=== PATIENT | male | born 1960 | race Caucasian/White ===

== ENCOUNTER 2017-08-20 10:15 | Inpatient (IN) | payer OTHER, MEDICAID ==
[~2017-08-20] VITALS: Ht 175.3 cm; Wt 103.6 kg
[~2017-08-20 10:15] MED LIST: TNFMISC
[2017-08-20 11:01] VITALS: BP 139/76
[2017-08-20] MEDS ORDERED: HALOPERIDOL 5 MG TABLET PO PRN (11:30)
[2017-08-20] MEDS ORDERED: ZOLPIDEM TARTRATE 10 MG TABLET PO PRN (11:30)
[2017-08-20] MEDS ORDERED: LORazepam 2 MG TABLET PO PRN (11:30)
[2017-08-20] MEDS ORDERED: INFLUENZA VIRUS VACCINE QVS 2017-18 (3YR+)/PF 60 MCG/0.5 ML SYRINGE IM ONE (11:30)
[2017-08-20] MEDS ORDERED: PNEUMOCOCCAL VACCINE POLYVALENT 0.5 ML VIAL [PPSV23] IM ONE (12:00)
[2017-08-20] MEDS ORDERED: KDUR20 PO (12:25)
[2017-08-20] MEDS ORDERED: DIVA500T52 PO (12:25)
[2017-08-20] MEDS ORDERED: FURO40 PO (12:25)
[2017-08-20] MEDS ORDERED: RISP1 PO (12:25)
[2017-08-20] MEDS ORDERED: PANT40TA25 PO (12:25)
[2017-08-20] MEDS ORDERED: LISI-661 PO (12:25)
[2017-08-20] MEDS ORDERED: LORA0.5T2 PO (12:25)
[2017-08-20] MEDS ORDERED: LEVO112T4 PO (12:25)
[2017-08-20] MEDS ORDERED: SUCR1TAB PO (12:25)
[2017-08-20] MEDS ORDERED: PHEN100C23 PO ×2 (12:25)
[2017-08-20] MEDS ORDERED: FERR-89 PO (12:25)
[2017-08-20] MEDS ORDERED: LEVE500T53 PO ×3 (12:25)
[2017-08-20] MEDS ORDERED: GUAN1TAB22 PO (12:25)
[2017-08-20] MEDS ORDERED: BENZ1TAB10 PO (12:25)
[2017-08-20] MEDS ORDERED: BRIV100T PO (12:25)
[2017-08-20 13:06] LABS: BASOPHILS # (AUTO) 0.03 K/uL (0.00-0.20); BASOPHILS % (AUTO) 0.5 % (0.0-2.0); EOSINOPHILS # (AUTO) 0.05 K/uL (0.00-0.70); EOSINOPHILS % (AUTO) 0.66 % (1.0-6.0); HEMATOCRIT 34.7 % (41-53); HEMOGLOBIN 11.8 g/dL (13.5-17.5); LYMPHOCYTES # (AUTO) 1.9 K/uL (1.0-4.8); LYMPHOCYTES % (AUTO) 25.8 % (22.0-44.0); MEAN CORPUSCULAR HEMOGLOBIN 31.7 pg (26.0-34.0); MEAN CORPUSCULAR HGB CONC 33.9 G/dL (31.0-37.0); MEAN CORPUSCULAR VOLUME 94 fL (80-100); MONOCYTES # (AUTO) 0.7 K/uL (0.1-1.0); MONOCYTES % (AUTO) 9.4 % (2.0-9.0); NEUTROPHILS # (AUTO) 4.6 K/uL (1.8-7.7); NEUTROPHILS % (AUTO) 63.7 % (40.0-70.0); PLATELET COUNT (AUTO) 294 K/uL (150-450); RED BLOOD CELL COUNT(AUTO) 3.71 MIL/uL (4.50-5.90); RED CELL DISTRIBUTION WIDTH 13.7 % (11.5-14.5); WHITE BLOOD COUNT (AUTO) 7.2 K/uL (4.5-11.0)
[2017-08-20 13:22] LABS: GLUCOSE,POINT OF CARE 93 MG/DL (70-110)
[2017-08-20 13:24] LABS: ANION GAP 7 mmol/L (8-16); CARBON DIOXIDE 29 mmol/L (22-29); CHLORIDE 89 mmol/L (98-107); GLOMERULAR FILTR. RATE CALC > 60 mL/min (>60); POTASSIUM 4.6 mmol/L (3.5-5.1); SODIUM SERUM 125 mmol/L (136-145); UREA NITROGEN, BLOOD 21 mg/dL (7-18)
[2017-08-20 13:31] LABS: ALANINE AMINOTRANSFERASE 21 U/L (12-78); ALBUMIN 3.9 g/dL (3.4-5.0); ASPARTATE AMINOTRANSFERASE 17 U/L (15-37); BILIRUBIN,TOTAL 0.2 mg/dL (0.1-1.0); TOTAL PROTEIN, SERUM 8.5 g/dL (6.4-8.2)
[2017-08-20] MEDS ORDERED: SODIUM CHLORIDE 0.9% 1,000 ML IV ONE (13:45)
[2017-08-20] MEDS: LORazepam 0.5 MG TABLET PO SCH (18:00)
[2017-08-20] MEDS: RisperiDONE 1 MG TABLET PO SCH (18:45)
[2017-08-20] MEDS: DIVALPROEX SODIUM 500 MG ER TABLET PO SCH (19:51)
[2017-08-20 20:00] VITALS: BP 157/74
[2017-08-20] MEDS ORDERED: DIVALPROEX SODIUM 500 MG ER TABLET PO SCH (20:00)
[2017-08-20] MEDS ORDERED: PETROLATUM,WHITE 71 GM JELLY TP PRN (20:00)
[2017-08-20] MEDS ORDERED: BACITRACIN 28.4 GM OINTMENT TP PRN (20:00)
[2017-08-20] MEDS ORDERED: MAG HYDROX/AL HYDROX/SIMETH ES 30 ML SUSPENSION UDCUP PO PRN (20:00)
[2017-08-20] MEDS ORDERED: LOPERAMIDE HCL 2 MG CAPSULE PO PRN (20:00)
[2017-08-20] MEDS ORDERED: ONDANSETRON HCL 4 MG TABLET PO PRN (20:00)
[2017-08-20] MEDS ORDERED: CloNIDine HCL 0.1 MG TABLET PO PRN (20:00)
[2017-08-20] MEDS ORDERED: ACETAMINOPHEN 325 MG TABLET PO PRN (20:00)
[2017-08-20] MEDS ORDERED: ALBUTEROL SULFATE HFA 90 MCG/PUFF 8 GM INHALER IH PRN (20:00)
[2017-08-20] MEDS ORDERED: MAGNESIUM HYDROXIDE SUSPENSION 30 ML UDCUP PO PRN (20:00)
[2017-08-20] MEDS ORDERED: IBUPROFEN 600 MG TABLET PO PRN (20:00)
[2017-08-20] MEDS ORDERED: BENZOCAINE/MENTHOL LOZENGE [8 LOZENGES/PACKET] MM PRN (20:00)
[2017-08-21] MEDS ORDERED: PANTOPRAZOLE SODIUM 40 MG DR TABLET PO SCH (07:00)
[2017-08-21] MEDS ORDERED: LEVOTHYROXINE SODIUM 112 MCG TABLET PO SCH (07:00)
[2017-08-21 07:22] LABS: GLUCOSE,POINT OF CARE 107 MG/DL (70-110)
[2017-08-21] MEDS ORDERED: FERROUS SULFATE 325 MG EC TABLET PO SCH (07:30)
[2017-08-21] MEDS ORDERED: LevETIRAcetam 500 MG TABLET PO SCH (09:00)
[2017-08-21] MEDS ORDERED: DOCUSATE SODIUM 100 MG CAPSULE PO SCH (09:00)
[2017-08-21] MEDS ORDERED: PHENYTOIN SODIUM 100 MG ER CAPSULE PO SCH (09:00)
[2017-08-21] MEDS ORDERED: GuanFACINE HCL 1 MG TABLET PO SCH (09:00)
[2017-08-21] MEDS ORDERED: POTASSIUM CHLORIDE 20 MEQ ER TABLET PO SCH (09:00)
[2017-08-21] MEDS ORDERED: FUROSEMIDE 40 MG TABLET PO SCH (09:00)
[2017-08-21] MEDS: DIVALPROEX SODIUM 500 MG ER TABLET PO SCH (09:26)
[2017-08-21] MEDS: LISINOPRIL 10 MG TABLET PO SCH ×2 (09:27→09:46)
[2017-08-21] MEDS: RisperiDONE 1 MG TABLET PO SCH (09:27)
[2017-08-21] MEDS: LORazepam 0.5 MG TABLET PO SCH (09:28)
[2017-08-21 09:30] VITALS: BP 147/70
== END 2017-08-21 09:59 | disposition short-term general hospital (02) | DRG 885 ==
LOC: EDSTATUS 10:32 → BV PSY EVL 11:52 → 3EX 12:57 → 3EC 19:07
PROVIDERS: ADMIT Psychiatry & Neurology Psychiatry; ATTEND Psychiatry & Neurology Psychiatry
DX: F25.9 Schizoaffective disorder, unspecified (principal); F79 Unspecified intellectual disabilities; G40.909 Epilepsy, unspecified, not intractable, without status epilepticus; I10 Essential (primary) hypertension; Z79.899 Other long term (current) drug therapy
CPT/HCPCS: 82948; 82962; 90471; 99285; G0482; J7030

== ENCOUNTER 2017-08-21 10:00 | Inpatient (IN) | payer MEDICARE, MEDICAID ==
[~2017-08-21 10:00] MED LIST changes: +BENZ1TAB10 PO; +BRIV100T PO; +DIVA500T52 PO; +FERR-89 PO; +FURO40 PO; +GUAN1TAB22 PO; +KDUR20 PO; +LEVE500T53 PO; +LEVO112T4 PO; +LISI-661 PO; +LORA0.5T2 PO; +PANT40TA25 PO; +PHEN100C23 PO; +RISP1 PO; +SUCR1TAB PO
[2017-08-21] MEDS ORDERED: LevETIRAcetam 1,000 MG in DEXTROSE 5%-WATER 100 ML IV SCH (11:30)
[2017-08-21] MEDS ORDERED: ONDANSETRON HCL 4 MG/2 ML VIAL IVP PRN (11:30)
[2017-08-21] MEDS ORDERED: IPRATROPIUM BROMIDE 0.5 MG/2.5 ML NEB SOLUTION NEB PRN (11:30)
[2017-08-21] MEDS ORDERED: ZOLPIDEM TARTRATE 5 MG TABLET PO PRN (11:30)
[2017-08-21] MEDS ORDERED: CloNIDine HCL 0.1 MG TABLET PO PRN (11:30)
[2017-08-21] MEDS ORDERED: MAGNESIUM HYDROXIDE SUSPENSION 30 ML UDCUP PO PRN (11:30)
[2017-08-21] MEDS ORDERED: ALBUTEROL SULFATE 2.5 MG/0.5 ML NEB SOLUTION NEB PRN (11:30)
[2017-08-21] MEDS ORDERED: BISACODYL 10 MG RECTAL RECTAL SUPPOSITORY PR PRN (11:30)
[2017-08-21] MEDS ORDERED: ACETAMINOPHEN 325 MG TABLET PO PRN (11:30)
[2017-08-21 11:37] VITALS: BP 126/65
[2017-08-21 13:45] LABS: BASOPHILS # (AUTO) 0.01 K/uL (0.00-0.20); BASOPHILS % (AUTO) 0.2 % (0.0-2.0); EOSINOPHILS # (AUTO) 0.05 K/uL (0.00-0.70); EOSINOPHILS % (AUTO) 0.68 % (1.0-6.0); HEMATOCRIT 34.9 % (41-53); HEMOGLOBIN 11.7 g/dL (13.5-17.5); LYMPHOCYTES # (AUTO) 1.5 K/uL (1.0-4.8); LYMPHOCYTES % (AUTO) 20.2 % (22.0-44.0); MEAN CORPUSCULAR HEMOGLOBIN 31.4 pg (26.0-34.0); MEAN CORPUSCULAR HGB CONC 33.6 G/dL (31.0-37.0); MEAN CORPUSCULAR VOLUME 94 fL (80-100); MONOCYTES # (AUTO) 0.7 K/uL (0.1-1.0); MONOCYTES % (AUTO) 9.8 % (2.0-9.0); NEUTROPHILS % (AUTO) 69.1 % (40.0-70.0); PLATELET COUNT (AUTO) 287 K/uL (150-450); RED BLOOD CELL COUNT(AUTO) 3.72 MIL/uL (4.50-5.90); RED CELL DISTRIBUTION WIDTH 13.5 % (11.5-14.5)
[2017-08-21] MEDS ORDERED: SODIUM CHLORIDE 0.9% 1,000 ML IV SCH (14:00)
[2017-08-21 14:12] LABS: ALANINE AMINOTRANSFERASE 19 U/L (12-78); ALBUMIN 3.5 g/dL (3.4-5.0); ALKALINE PHOSPHATASE 127 U/L (46-116); ANION GAP 9 mmol/L (8-16); ASPARTATE AMINOTRANSFERASE 18 U/L (15-37); BILIRUBIN,TOTAL 0.3 mg/dL (0.1-1.0); CALCIUM, TOTAL 8.7 mg/dL (8.8-10.5); CARBON DIOXIDE 27 mmol/L (22-29); CHLORIDE 89 mmol/L (98-107); GLOMERULAR FILTR. RATE CALC > 60 mL/min (>60); GLUCOSE,RANDOM 103 mg/dL (70-110); POTASSIUM 4.3 mmol/L (3.5-5.1); SODIUM SERUM 125 mmol/L (136-145); TOTAL PROTEIN, SERUM 8.2 g/dL (6.4-8.2); UREA NITROGEN, BLOOD 17 mg/dL (7-18)
[2017-08-21] MEDS ORDERED: PHENYTOIN SODIUM 1,000 MG in SODIUM CHLORIDE 0.9% 150 ML IV ONE (15:00)
[2017-08-21 15:50] VITALS: BP 100/60
[2017-08-21] MEDS: LORazepam 0.5 MG TABLET PO SCH ×3 (16:00→20:32)
[2017-08-21] MEDS: GuanFACINE HCL 1 MG TABLET PO SCH (16:21)
[2017-08-21] MEDS ORDERED: HEPARIN SODIUM,PORCINE 5,000 UNITS/ML VIAL IVP PRN ×2 (18:30)
[2017-08-21 18:56] LABS: INR 1.1 (0.9-1.1); PROTHROMBIN TIME 11.4 SEC (9.4-11.6)
[2017-08-21] MEDS ORDERED: HEPARIN SODIUM,PORCINE 5,000 UNITS/ML VIAL IVP ONE (19:00)
[2017-08-21 20:10] VITALS: BP 154/67
[2017-08-21] MEDS: HEPARIN SODIUM 25000 UNITS/D5W 250 ML IV PRN (20:18)
[2017-08-21] MEDS: SUCRALFATE 1 GM TABLET PO SCH (20:32)
[2017-08-21] MEDS: BENZTROPINE MESYLATE 1 MG TABLET PO SCH (20:32)
[2017-08-21] MEDS: DIVALPROEX SODIUM 500 MG ER TABLET PO SCH (20:33)
[2017-08-21] MEDS: RisperiDONE 1 MG TABLET PO SCH (20:33)
[2017-08-21] MEDS ORDERED: HEPARIN SODIUM,PORCINE 5,000 UNITS/ML VIAL SQ SCH (21:00)
[2017-08-22 00:09] VITALS: BP 110/58
[2017-08-22 04:32] VITALS: BP 113/69
[2017-08-22 05:59] LABS: BASOPHILS % (AUTO) 0.5 % (0.0-2.0); EOSINOPHILS % (AUTO) 2.2 % (1.0-6.0); HEMATOCRIT 29.7 % (41-53); HEMOGLOBIN 10.1 g/dL (13.5-17.5); LYMPHOCYTES # (AUTO) 2.4 K/uL (1.0-4.8); LYMPHOCYTES % (AUTO) 37.6 % (22.0-44.0); MEAN CORPUSCULAR HEMOGLOBIN 31.7 pg (26.0-34.0); MEAN CORPUSCULAR HGB CONC 34.1 G/dL (31.0-37.0); MEAN CORPUSCULAR VOLUME 93 fL (80-100); MONOCYTES # (AUTO) 0.7 K/uL (0.1-1.0); MONOCYTES % (AUTO) 11.9 % (2.0-9.0); NEUTROPHILS % (AUTO) 47.8 % (40.0-70.0); PLATELET COUNT (AUTO) 253 K/uL (150-450); RED BLOOD CELL COUNT(AUTO) 3.19 MIL/uL (4.50-5.90); RED CELL DISTRIBUTION WIDTH 13.4 % (11.5-14.5)
[2017-08-22 06:24] LABS: ALANINE AMINOTRANSFERASE 18 U/L (12-78); ALBUMIN 2.9 g/dL (3.4-5.0); ALKALINE PHOSPHATASE 109 U/L (46-116); ANION GAP 7 mmol/L (8-16); ASPARTATE AMINOTRANSFERASE 14 U/L (15-37); BILIRUBIN,TOTAL 0.2 mg/dL (0.1-1.0); CALCIUM, TOTAL 8.1 mg/dL (8.8-10.5); CARBON DIOXIDE 26 mmol/L (22-29); CHLORIDE 89 mmol/L (98-107); CHOL/HDL RATIO 1.7 (4.2-7.3); CHOLESTEROL 146 mg/dL (131-200); CREATININE 0.96 mg/dL (0.60-1.30); GLOMERULAR FILTR. RATE CALC > 60 mL/min (>60); GLUCOSE,RANDOM 98 mg/dL (70-110); HDL CHOLESTEROL 84 mg/dL (40-60); LDL CHOL (CALC.) 52 mg/dL (0-130); PHENYTOIN (DILANTIN) 11.1 mcg/mL (10.0-20.0); PHOSPHORUS 3.1 mg/dL (2.5-4.9); POTASSIUM 4.2 mmol/L (3.5-5.1); THYROID STIMULATING HORMONE 4.26 uIU/mL (0.36-3.74); TOTAL PROTEIN, SERUM 6.6 g/dL (6.4-8.2); TRIGLYCERIDES 48 mg/dL (15-150); UREA NITROGEN, BLOOD 16 mg/dL (7-18)
[2017-08-22] MEDS ORDERED: LEVOTHYROXINE SODIUM 112 MCG TABLET PO SCH (06:30)
[2017-08-22 06:49] LABS: SODIUM SERUM 122 mmol/L (136-145)
[2017-08-22 07:22] VITALS: BP 126/75
[2017-08-22] MEDS: LORazepam 0.5 MG TABLET PO SCH ×3 (09:08→19:56)
[2017-08-22] MEDS: LevETIRAcetam 1,000 MG in DEXTROSE 5%-WATER 100 ML IV SCH (09:08)
[2017-08-22] MEDS: SUCRALFATE 1 GM TABLET PO SCH ×2 (09:08→19:54)
[2017-08-22] MEDS: BENZTROPINE MESYLATE 1 MG TABLET PO SCH ×2 (09:08→19:54)
[2017-08-22] MEDS: DIVALPROEX SODIUM 500 MG ER TABLET PO SCH ×2 (09:08→19:54)
[2017-08-22] MEDS: LISINOPRIL 10 MG TABLET PO SCH (09:09)
[2017-08-22] MEDS: RisperiDONE 1 MG TABLET PO SCH ×2 (09:09→19:54)
[2017-08-22] MEDS: PANTOPRAZOLE SODIUM 40 MG DR TABLET PO SCH (09:09)
[2017-08-22] MEDS: GuanFACINE HCL 1 MG TABLET PO SCH (09:09)
[2017-08-22 11:06] VITALS: BP 116/60
[2017-08-22] MEDS: HEPARIN SODIUM 25000 UNITS/D5W 250 ML IV PRN (13:48)
[2017-08-22] MEDS: SODIUM CHLORIDE 1 GM TABLET PO SCH ×2 (15:28→19:54)
[2017-08-22 16:15] VITALS: BP 124/68
[2017-08-22 19:28] VITALS: BP 116/50
[2017-08-22] MEDS ORDERED: PNEUMOCOCCAL VACCINE POLYVALENT 0.5 ML VIAL [PPSV23] IM ONE (20:30)
[2017-08-23 04:16] VITALS: BP 119/72
[2017-08-23 08:03] LABS: SODIUM SERUM 127 mmol/L (136-145)
[2017-08-23] MEDS: SODIUM CHLORIDE 1 GM TABLET PO SCH ×3 (09:05→21:03)
[2017-08-23] MEDS: GuanFACINE HCL 1 MG TABLET PO SCH (09:05)
[2017-08-23] MEDS: DIVALPROEX SODIUM 500 MG ER TABLET PO SCH ×2 (09:05→21:06)
[2017-08-23] MEDS: BENZTROPINE MESYLATE 1 MG TABLET PO SCH ×2 (09:06→21:06)
[2017-08-23] MEDS: SUCRALFATE 1 GM TABLET PO SCH ×2 (09:06→21:03)
[2017-08-23] MEDS: PANTOPRAZOLE SODIUM 40 MG DR TABLET PO SCH (09:06)
[2017-08-23] MEDS: LEVOTHYROXINE SODIUM 125 MCG TABLET PO SCH (09:07)
[2017-08-23] MEDS: RisperiDONE 1 MG TABLET PO SCH ×2 (09:07→21:04)
[2017-08-23] MEDS: RIVAROXABAN 15 MG TABLET PO SCH ×2 (09:08→17:15)
[2017-08-23] MEDS: LORazepam 0.5 MG TABLET PO SCH ×3 (09:08→21:04)
[2017-08-23] MEDS: LISINOPRIL 10 MG TABLET PO SCH (09:09)
[2017-08-23] MEDS: LevETIRAcetam 1,000 MG in DEXTROSE 5%-WATER 100 ML IV SCH (09:24)
[2017-08-23 09:41] VITALS: BP 118/69
[2017-08-23 11:54] LABS: VALPROIC ACID 45 mcg/mL (50-100)
[2017-08-23 15:26] VITALS: BP 121/70
[2017-08-23 19:15] VITALS: BP 113/64
[2017-08-23] MEDS: PHENYTOIN SODIUM 100 MG ER CAPSULE PO SCH (21:03)
[2017-08-23] MEDS: LevETIRAcetam 500 MG TABLET PO SCH (21:04)
[2017-08-24 01:31] VITALS: BP 124/52
[2017-08-24 04:05] VITALS: BP 135/80
[2017-08-24] MEDS: LEVOTHYROXINE SODIUM 125 MCG TABLET PO SCH (05:43)
[2017-08-24 06:08] LABS: BASOPHILS % (AUTO) 0.5 % (0.0-2.0); EOSINOPHILS % (AUTO) 1.2 % (1.0-6.0); HEMATOCRIT 30.1 % (41-53); HEMOGLOBIN 10.3 g/dL (13.5-17.5); LYMPHOCYTES # (AUTO) 2.2 K/uL (1.0-4.8); LYMPHOCYTES % (AUTO) 36.1 % (22.0-44.0); MEAN CORPUSCULAR HEMOGLOBIN 31.9 pg (26.0-34.0); MEAN CORPUSCULAR HGB CONC 34.2 G/dL (31.0-37.0); MEAN CORPUSCULAR VOLUME 93 fL (80-100); MONOCYTES # (AUTO) 0.8 K/uL (0.1-1.0); MONOCYTES % (AUTO) 13.8 % (2.0-9.0); NEUTROPHILS # (AUTO) 2.9 K/uL (1.8-7.7); NEUTROPHILS % (AUTO) 48.4 % (40.0-70.0); PLATELET COUNT (AUTO) 267 K/uL (150-450); RED BLOOD CELL COUNT(AUTO) 3.23 MIL/uL (4.50-5.90); RED CELL DISTRIBUTION WIDTH 13.9 % (11.5-14.5)
[2017-08-24 06:26] LABS: ALANINE AMINOTRANSFERASE 19 U/L (12-78); ALBUMIN 2.8 g/dL (3.4-5.0); ALKALINE PHOSPHATASE 102 U/L (46-116); ANION GAP 5 mmol/L (8-16); ASPARTATE AMINOTRANSFERASE 12 U/L (15-37); BILIRUBIN,TOTAL 0.1 mg/dL (0.1-1.0); CALCIUM, TOTAL 8.1 mg/dL (8.8-10.5); CARBON DIOXIDE 29 mmol/L (22-29); CHLORIDE 96 mmol/L (98-107); CREATININE 0.94 mg/dL (0.60-1.30); GLOMERULAR FILTR. RATE CALC > 60 mL/min (>60); GLUCOSE,RANDOM 88 mg/dL (70-110); PHOSPHORUS 2.6 mg/dL (2.5-4.9); POTASSIUM 4.1 mmol/L (3.5-5.1); SODIUM SERUM 130 mmol/L (136-145); TOTAL PROTEIN, SERUM 6.6 g/dL (6.4-8.2); UREA NITROGEN, BLOOD 12 mg/dL (7-18)
[2017-08-24 07:15] VITALS: BP 130/66
[2017-08-24] MEDS: SODIUM CHLORIDE 1 GM TABLET PO SCH ×3 (08:17→20:16)
[2017-08-24] MEDS: GuanFACINE HCL 1 MG TABLET PO SCH (08:17)
[2017-08-24] MEDS: DIVALPROEX SODIUM 500 MG ER TABLET PO SCH ×2 (08:17→21:13)
[2017-08-24] MEDS: PHENYTOIN SODIUM 100 MG ER CAPSULE PO SCH ×2 (08:17→20:16)
[2017-08-24] MEDS: SUCRALFATE 1 GM TABLET PO SCH ×2 (08:17→20:16)
[2017-08-24] MEDS: RIVAROXABAN 15 MG TABLET PO SCH ×2 (08:17→17:48)
[2017-08-24] MEDS: LevETIRAcetam 500 MG TABLET PO SCH ×2 (08:18→20:20)
[2017-08-24] MEDS: LISINOPRIL 10 MG TABLET PO SCH (08:18)
[2017-08-24] MEDS: LORazepam 0.5 MG TABLET PO SCH ×3 (08:19→20:21)
[2017-08-24] MEDS: PANTOPRAZOLE SODIUM 40 MG DR TABLET PO SCH (08:19)
[2017-08-24] MEDS: BENZTROPINE MESYLATE 1 MG TABLET PO SCH ×2 (08:19→20:16)
[2017-08-24] MEDS: CHOLECALCIFEROL (VIT D3) 1,000 UNITS TABLET PO SCH (08:20)
[2017-08-24] MEDS: RisperiDONE 1 MG TABLET PO SCH ×2 (08:20→20:16)
[2017-08-24] MEDS: LORazepam 2 MG/ML VIAL IVP PRN ×2 (11:35→17:48)
[2017-08-24 12:59] VITALS: BP 157/85
[2017-08-24 19:07] VITALS: BP 104/59
[2017-08-24] MEDS ORDERED: SODIUM CHLORIDE 0.9% 500 ML IV ONE (21:24)
[2017-08-25] VITALS (7 sets, daily range): BP systolic 124–142; BP diastolic 66–79
[2017-08-25] MEDS: LORazepam 2 MG/ML VIAL IVP PRN (03:15)
[2017-08-25] MEDS: LEVOTHYROXINE SODIUM 150 MCG TABLET PO SCH (05:59)
[2017-08-25 08:08] LABS: ANION GAP 7 mmol/L (8-16); CALCIUM, TOTAL 8.4 mg/dL (8.8-10.5); CARBON DIOXIDE 26 mmol/L (22-29); CHLORIDE 96 mmol/L (98-107); GLOMERULAR FILTR. RATE CALC > 60 mL/min (>60); GLUCOSE,RANDOM 96 mg/dL (70-110); POTASSIUM 4.7 mmol/L (3.5-5.1); SODIUM SERUM 129 mmol/L (136-145); UREA NITROGEN, BLOOD 16 mg/dL (7-18)
[2017-08-25] MEDS: BENZTROPINE MESYLATE 1 MG TABLET PO SCH ×2 (10:04→20:17)
[2017-08-25] MEDS: DIVALPROEX SODIUM 500 MG ER TABLET PO SCH ×2 (10:04→20:18)
[2017-08-25] MEDS: LevETIRAcetam 500 MG TABLET PO SCH ×2 (10:04→20:17)
[2017-08-25] MEDS: PANTOPRAZOLE SODIUM 40 MG DR TABLET PO SCH (10:04)
[2017-08-25] MEDS: RisperiDONE 1 MG TABLET PO SCH ×2 (10:05→20:17)
[2017-08-25] MEDS: LISINOPRIL 10 MG TABLET PO SCH (10:05)
[2017-08-25] MEDS: GuanFACINE HCL 1 MG TABLET PO SCH (10:05)
[2017-08-25] MEDS: SUCRALFATE 1 GM TABLET PO SCH ×2 (10:05→20:18)
[2017-08-25] MEDS: SODIUM CHLORIDE 1 GM TABLET PO SCH ×3 (10:05→20:18)
[2017-08-25] MEDS: PHENYTOIN SODIUM 100 MG ER CAPSULE PO SCH ×2 (10:05→20:18)
[2017-08-25] MEDS: RIVAROXABAN 15 MG TABLET PO SCH ×2 (10:05→17:18)
[2017-08-25] MEDS: CHOLECALCIFEROL (VIT D3) 1,000 UNITS TABLET PO SCH (10:08)
[2017-08-25] MEDS: LORazepam 0.5 MG TABLET PO SCH ×3 (10:08→20:17)
[2017-08-26 04:00] VITALS: BP 122/68
[2017-08-26] MEDS: LEVOTHYROXINE SODIUM 150 MCG TABLET PO SCH (05:44)
[2017-08-26 06:29] LABS: BASOPHILS # (AUTO) 0.02 K/uL (0.00-0.20); BASOPHILS % (AUTO) 0.3 % (0.0-2.0); EOSINOPHILS # (AUTO) 0.14 K/uL (0.00-0.70); EOSINOPHILS % (AUTO) 2.05 % (1.0-6.0); HEMATOCRIT 32.8 % (41-53); LYMPHOCYTES # (AUTO) 2.1 K/uL (1.0-4.8); LYMPHOCYTES % (AUTO) 31.2 % (22.0-44.0); MEAN CORPUSCULAR HEMOGLOBIN 31.8 pg (26.0-34.0); MEAN CORPUSCULAR HGB CONC 33.6 G/dL (31.0-37.0); MEAN CORPUSCULAR VOLUME 95 fL (80-100); MONOCYTES # (AUTO) 0.6 K/uL (0.1-1.0); MONOCYTES % (AUTO) 9.3 % (2.0-9.0); NEUTROPHILS # (AUTO) 3.8 K/uL (1.8-7.7); NEUTROPHILS % (AUTO) 57.1 % (40.0-70.0); PLATELET COUNT (AUTO) 287 K/uL (150-450); RED BLOOD CELL COUNT(AUTO) 3.47 MIL/uL (4.50-5.90); RED CELL DISTRIBUTION WIDTH 13.8 % (11.5-14.5)
[2017-08-26 06:49] LABS: ALANINE AMINOTRANSFERASE 18 U/L (12-78); ALBUMIN 2.8 g/dL (3.4-5.0); ALKALINE PHOSPHATASE 114 U/L (46-116); ANION GAP 7 mmol/L (8-16); ASPARTATE AMINOTRANSFERASE 16 U/L (15-37); BILIRUBIN,TOTAL 0.2 mg/dL (0.1-1.0); CALCIUM, TOTAL 8.5 mg/dL (8.8-10.5); CARBON DIOXIDE 28 mmol/L (22-29); CHLORIDE 96 mmol/L (98-107); CREATININE 0.86 mg/dL (0.60-1.30); GLOMERULAR FILTR. RATE CALC > 60 mL/min (>60); GLUCOSE,RANDOM 94 mg/dL (70-110); PHOSPHORUS 3.5 mg/dL (2.5-4.9); POTASSIUM 4.7 mmol/L (3.5-5.1); SODIUM SERUM 131 mmol/L (136-145); TOTAL PROTEIN, SERUM 7.2 g/dL (6.4-8.2); UREA NITROGEN, BLOOD 15 mg/dL (7-18)
[2017-08-26 07:43] VITALS: BP 110/66
[2017-08-26] MEDS: GuanFACINE HCL 1 MG TABLET PO SCH (08:16)
[2017-08-26] MEDS: SODIUM CHLORIDE 1 GM TABLET PO SCH ×2 (08:16→19:47)
[2017-08-26] MEDS: DIVALPROEX SODIUM 500 MG ER TABLET PO SCH ×2 (08:16→19:45)
[2017-08-26] MEDS: BENZTROPINE MESYLATE 1 MG TABLET PO SCH ×2 (08:17→19:46)
[2017-08-26] MEDS: RisperiDONE 1 MG TABLET PO SCH ×2 (08:17→19:46)
[2017-08-26] MEDS: RIVAROXABAN 15 MG TABLET PO SCH ×2 (08:17→19:47)
[2017-08-26] MEDS: CHOLECALCIFEROL (VIT D3) 1,000 UNITS TABLET PO SCH (08:17)
[2017-08-26] MEDS: LISINOPRIL 10 MG TABLET PO SCH (08:17)
[2017-08-26] MEDS: PHENYTOIN SODIUM 100 MG ER CAPSULE PO SCH ×2 (08:17→19:46)
[2017-08-26] MEDS: PANTOPRAZOLE SODIUM 40 MG DR TABLET PO SCH (08:17)
[2017-08-26] MEDS: SUCRALFATE 1 GM TABLET PO SCH ×2 (08:18→19:45)
[2017-08-26] MEDS: LORazepam 0.5 MG TABLET PO SCH ×2 (08:18→19:45)
[2017-08-26] MEDS: LevETIRAcetam 500 MG TABLET PO SCH ×2 (08:19→19:46)
[2017-08-26 11:51] VITALS: BP 122/73
[2017-08-26 16:00] VITALS: BP 116/64
[2017-08-26 19:37] VITALS: BP 143/69
[2017-08-26 23:04] VITALS: BP 134/70
[2017-08-27] MEDS: SODIUM CHLORIDE 1 GM TABLET PO SCH ×4 (00:51→20:03)
[2017-08-27 04:37] VITALS: BP 125/77
[2017-08-27] MEDS: LEVOTHYROXINE SODIUM 150 MCG TABLET PO SCH (06:06)
[2017-08-27 07:12] VITALS: BP 115/71
[2017-08-27] MEDS: RisperiDONE 1 MG TABLET PO SCH ×2 (08:02→20:04)
[2017-08-27] MEDS: LISINOPRIL 10 MG TABLET PO SCH (08:02)
[2017-08-27] MEDS: BENZTROPINE MESYLATE 1 MG TABLET PO SCH ×2 (08:02→20:03)
[2017-08-27] MEDS: PHENYTOIN SODIUM 100 MG ER CAPSULE PO SCH ×2 (08:02→20:03)
[2017-08-27] MEDS: PANTOPRAZOLE SODIUM 40 MG DR TABLET PO SCH (08:03)
[2017-08-27] MEDS: CHOLECALCIFEROL (VIT D3) 1,000 UNITS TABLET PO SCH (08:03)
[2017-08-27] MEDS: LevETIRAcetam 500 MG TABLET PO SCH ×2 (08:03→20:03)
[2017-08-27] MEDS: GuanFACINE HCL 1 MG TABLET PO SCH (08:03)
[2017-08-27] MEDS: SUCRALFATE 1 GM TABLET PO SCH ×2 (08:04→20:03)
[2017-08-27] MEDS: RIVAROXABAN 15 MG TABLET PO SCH ×2 (08:04→18:11)
[2017-08-27] MEDS: LORazepam 0.5 MG TABLET PO SCH ×3 (08:04→20:03)
[2017-08-27] MEDS: DIVALPROEX SODIUM 500 MG ER TABLET PO SCH ×2 (08:04→20:03)
[2017-08-27 11:05] VITALS: BP 117/77
[2017-08-27 11:27] VITALS: BP 112/59
[2017-08-27 15:03] VITALS: BP 133/73
[2017-08-27 19:34] VITALS: BP 108/58
[2017-08-28] VITALS: BP 106/63
[2017-08-28 04:01] VITALS: BP 117/41
[2017-08-28] MEDS: LEVOTHYROXINE SODIUM 150 MCG TABLET PO SCH (06:24)
[2017-08-28 07:25] VITALS: BP 114/64
[2017-08-28] MEDS: LevETIRAcetam 500 MG TABLET PO SCH (08:10)
[2017-08-28] MEDS: LORazepam 0.5 MG TABLET PO SCH (08:10)
[2017-08-28] MEDS: PHENYTOIN SODIUM 100 MG ER CAPSULE PO SCH (08:10)
[2017-08-28] MEDS: RisperiDONE 1 MG TABLET PO SCH (08:10)
[2017-08-28] MEDS: LISINOPRIL 10 MG TABLET PO SCH (08:10)
[2017-08-28] MEDS: CHOLECALCIFEROL (VIT D3) 1,000 UNITS TABLET PO SCH (08:10)
[2017-08-28] MEDS: PANTOPRAZOLE SODIUM 40 MG DR TABLET PO SCH (08:10)
[2017-08-28] MEDS: BENZTROPINE MESYLATE 1 MG TABLET PO SCH (08:10)
[2017-08-28] MEDS: SODIUM CHLORIDE 1 GM TABLET PO SCH (08:11)
[2017-08-28] MEDS: RIVAROXABAN 15 MG TABLET PO SCH (08:11)
[2017-08-28] MEDS: GuanFACINE HCL 1 MG TABLET PO SCH (08:11)
[2017-08-28] MEDS: DIVALPROEX SODIUM 500 MG ER TABLET PO SCH (08:11)
[2017-08-28] MEDS: SUCRALFATE 1 GM TABLET PO SCH (08:12)
[2017-08-28] MEDS ORDERED: VITAD1000 PO (10:51)
[2017-08-28] MEDS ORDERED: LEVO150 PO (10:52)
[2017-08-28] MEDS ORDERED: RIVA15T PO (10:55)
[2017-08-28] MEDS ORDERED: LEVE500T53 PO (10:56)
[2017-08-28] MEDS ORDERED: PANT40TA25 PO (10:59)
[2017-08-28] MEDS ORDERED: PHENY100 PO (11:03)
[2017-08-28] MEDS ORDERED: PHENL PO (11:03)
[2017-08-28 11:28] VITALS: BP 117/77
[2017-08-28] MEDS ORDERED: INFLUENZA VIRUS VACCINE QVS 2017-18 (3YR+)/PF 60 MCG/0.5 ML SYRINGE IM ONE (11:45)
== END 2017-08-28 15:47 | disposition home or self-care (01) | DRG 101 ==
LOC: 6N 10:00
PROVIDERS: ADMIT Internal Medicine; ATTEND Internal Medicine
PROC: 3E0234Z Introduction of Serum, Toxoid and Vaccine into Muscle, Percutaneous Approach (ICD-10-PCS; principal; 2017-08-22)
DX: G40.901 Epilepsy, unspecified, not intractable, with status epilepticus (principal); I95.9 Hypotension, unspecified; I82.409 Acute embolism and thrombosis of unspecified deep veins of unspecified lower extremity; E87.1 Hypo-osmolality and hyponatremia; F25.9 Schizoaffective disorder, unspecified; I10 Essential (primary) hypertension; K21.9 Gastro-esophageal reflux disease without esophagitis; K59.00 Constipation, unspecified; E03.9 Hypothyroidism, unspecified; R09.02 Hypoxemia; Z23 Encounter for immunization; E55.9 Vitamin D deficiency, unspecified; M79.89 Other specified soft tissue disorders
CPT/HCPCS: 70450; 82306; 83735; 84100; 84295; 84443; 87081; 90471; 93970; G0482; J0712; J1165; J1644; J2060; J7030; J7040; J7050; J7060

== ENCOUNTER 2017-10-04 14:07 | Emergency (ER) | payer MEDICARE, MEDICAID ==
[~2017-10-04] VITALS: Ht 162.6 cm; Wt 97.7 kg
[~2017-10-04 14:07] MED LIST changes: -BRIV100T PO; -FERR-89 PO; -FURO40 PO; -KDUR20 PO; -LEVO112T4 PO; +LEVO150 PO; -PHEN100C23 PO; +PHENY100 PO; +RIVA15T PO; -TNFMISC; +VITAD1000 PO
[2017-10-04] MEDS ORDERED: ASPI81 PO (14:29)
[2017-10-04] MEDS ORDERED: ZOLP10TA7 PO (14:29)
[2017-10-04] MEDS ORDERED: LACO100 PO (14:29)
[2017-10-04 16:13] LABS: APPEARANCE,URINE CLEAR (CLEAR); GLUCOSE, URINE (UA) NEGATIVE (NEGATIVE); KETONES,URINE NEGATIVE (NEGATIVE); LEUKOCYTE ESTERASE ,URINE NEGATIVE (NEGATIVE); OCCULT BLOOD,URINE NEGATIVE (NEGATIVE); PROTEIN,URINE NEGATIVE (NEGATIVE)
[2017-10-04 16:20] LABS: ADD UA MICROSCOPIC NO
[2017-10-04 16:21] LABS: BASOPHILS % (AUTO) 0.3 % (0.0-2.0); EOSINOPHILS % (AUTO) 2.7 % (1.0-6.0); HEMATOCRIT 30.8 % (41-53); HEMOGLOBIN 10.6 g/dL (13.5-17.5); LYMPHOCYTES # (AUTO) 1.3 K/uL (1.0-4.8); MEAN CORPUSCULAR HEMOGLOBIN 31.4 pg (26.0-34.0); MEAN CORPUSCULAR HGB CONC 34.4 G/dL (31.0-37.0); MEAN CORPUSCULAR VOLUME 91 fL (80-100); MONOCYTES # (AUTO) 0.5 K/uL (0.1-1.0); NEUTROPHILS # (AUTO) 2.5 K/uL (1.8-7.7); PLATELET COUNT (AUTO) 259 K/uL (150-450); RED BLOOD CELL COUNT(AUTO) 3.37 MIL/uL (4.50-5.90); RED CELL DISTRIBUTION WIDTH 13.9 % (11.5-14.5); WHITE BLOOD COUNT (AUTO) 4.5 K/uL (4.5-11.0)
[2017-10-04 16:27] LABS: ANION GAP 2 mmol/L (8-16); CALCIUM, TOTAL 8.7 mg/dL (8.8-10.5); CARBON DIOXIDE 31 mmol/L (22-29); CHLORIDE 97 mmol/L (98-107); GLOMERULAR FILTR. RATE CALC > 60 mL/min (>60); POTASSIUM 4.4 mmol/L (3.5-5.1); SODIUM SERUM 130 mmol/L (136-145); UREA NITROGEN, BLOOD 22 mg/dL (7-18)
[2017-10-04 16:29] LABS: INR 1.1 (0.9-1.1); PROTHROMBIN TIME 11.6 SEC (9.4-11.6)
[2017-10-04 16:43] LABS: ALANINE AMINOTRANSFERASE 21 U/L (12-78); ALBUMIN 3.2 g/dL (3.4-5.0); ASPARTATE AMINOTRANSFERASE 15 U/L (15-37); BILIRUBIN,TOTAL 0.1 mg/dL (0.1-1.0); THYROID STIMULATING HORMONE 4.86 uIU/mL (0.36-3.74); TOTAL PROTEIN, SERUM 7.7 g/dL (6.4-8.2); VALPROIC ACID 47 mcg/mL (50-100)
[2017-10-04 17:52] VITALS: BP 136/60
== END 2017-10-04 19:14 | disposition home or self-care (01) ==
LOC: EMS 14:08
DX: F25.9 Schizoaffective disorder, unspecified (principal); E87.1 Hypo-osmolality and hyponatremia; E03.9 Hypothyroidism, unspecified; R62.50 Unspecified lack of expected normal physiological development in childhood; I10 Essential (primary) hypertension; Z88.0 Allergy status to penicillin; Z88.1 Allergy status to other antibiotic agents
CPT/HCPCS: 36415; 80053; 80164; 80185; 80307; 81003; 84443; 85025; 85610; 85730; 99285; G0480; G0482